=== PATIENT | male | born 1950 | race Caucasian/White ===

== ENCOUNTER 2017-06-06 16:28 | Emergency (ER) | payer MEDICARE ==
[~2017-06-06] VITALS: Ht 182.9 cm; Wt 90.7 kg
== END 2017-06-06 19:11 | disposition home or self-care (01) ==
LOC: ED 16:28
DX: R51 Headache (principal); R11.10 Vomiting, unspecified; Z87.891 Personal history of nicotine dependence; Z90.49 Acquired absence of other specified parts of digestive tract; Z88.5 Allergy status to narcotic agent; Z88.8 Allergy status to other drugs, medicaments and biological substances
CPT/HCPCS: 96361; 96374; 96375; 99282; J1200; J2405; J2765; J7030

== ENCOUNTER 2021-01-21 05:45 | Day surgery (SDC) | payer OTHER ==
--- NOTE | 2021-01-16 10:39 | NUR ---
Patient is having a right total hip replacement on 01/21/21. He currently has a 2 wheel walker but will try and get a 4 wheel walker. He does not have stairs into his house and no stairs in his home. He has a walkin shower and shower chair but does not have a hand held shower head. He has a riser on his toilet. He will have a friend bring him and pick him up the day of his surgery. He lives with his significant other Elvira. He is planning on using a taxi to get to physical therapy appts. His first physical therapy appt has not been set up yet but he will call and make this appt.
[~2021-01-21] VITALS: Ht 182.9 cm; Wt 88.6 kg
[~2021-01-21 05:45] MED LIST: ADVIL200 M1 PO; GABAPENTIN300 MG PO
--- NOTE | 2021-01-21 08:44 | NUR ---
01/21/21 0844 Naida Bacon 0822 PT TO PACU AWAKE AND ALERT DENIES PAIN, PT WAS HAVING CARDIAC ISSUES DURING SURGERY, PROCEDURE WAS NOT COMPLETED. PVC AFTER T WAVE MAG SULFATE WAS GIVEN IN OR. PT IN NORMAL SINUS RHYTHEM IN PACU. CONSULT TO HOSPITALIST. LABS AND LOPEZ ORDERED. AIR CONTROL/ANTI AIR WARFARE OFFICER AND AT BEDSIDE.
--- NOTE | 2021-01-21 09:40 | NUR ---
70 YEAR OLD MALE PATIENT OF DR. HENSLEY/MADDI ADMITTED TO CCU S/P RIGHT HIP INCISION. THE SURGERY WAS PUT ON HOLD IN OR MONITOR SHOWED TORSADES DE POINTES. PATIOENT RECIEVED 1 GM OF MAG IN IN OR. UPON ADMIAT TO CCU TO IS ALERT ORIENTED AND COOPERATIVE. DENIES PAIN/NAUSEA. CRYROCUFF ON, LESLEE HOSE ON SCD'S ON. SL INTACT TO RIGHT HAND. ICE CHIPS GIVEN, REPORT RECIEVED FROM IT HELP DESK TECHNICIAN. ADMISSION STATRED. PLAN TO TRANSFER TO [facility] TODAY.
--- NOTE | 2021-01-21 10:00 | NUR ---
ECHOCARDIOGRAM BEING DONE AT BEDSIDE.
--- NOTE | 2021-01-21 10:30 | NUR ---
ECHO COMPLETE. PATIENT DENIES PAIN. CYOCUFF IN PLACE. FEET SCDS ON LESLEE HOSES IN PLACE. REMAINS ON O2 AT 2 LITERS.
--- NOTE | 2021-01-21 11:29 | NUR ---
AWAITING TRANSFER TO [facility].
--- NOTE | 2021-01-21 11:40 | NUR ---
[facility] HERE TO TAKE PATIENT TO [facility] , REPORT TO THEM.
--- NOTE | 2021-01-21 11:55 | NUR ---
TO [facility].
[2021-01-21] MEDS ORDERED: VALERIAN ROOT100 MG PO (12:50)
[2021-01-21] MEDS ORDERED: GNP GLUCOSAMIN PO (12:50)
[2021-01-21] MEDS ORDERED: COLLAGEN PLUS1 EACH PO (12:51)
[2021-01-21] MEDS ORDERED: B COMPLEX1 EACH PO (12:54)
[2021-01-21] MEDS ORDERED: COENZYME Q1050 M1 PO (12:54)
[2021-01-21] MEDS ORDERED: VITAMIN A2400 MCG PO (12:55)
[2021-01-21] MEDS ORDERED: VITAMIN B-12500 MCG PO (12:55)
[2021-01-21] MEDS ORDERED: NIACIN500 M1 PO (12:56)
[2021-01-21] MEDS ORDERED: VITAMIN D3125 MC1 PO (12:56)
[2021-01-21] MEDS ORDERED: MELATONIN5 M2 PO (12:57)
--- NOTE | 2021-01-21 13:09 | OR ---
[facility] [address] [place], [place] [address] Signed DATE OF OPERATION: 01/21/2021 SURGEON: Sushant Bacon MD PREOPERATIVE DIAGNOSIS: Severe degenerative joint disease of right hip. POSTOPERATIVE DIAGNOSIS: Severe degenerative joint disease of right hip. PROCEDURE PERFORMED: Hip arthrotomy. GAMING SURVEILLANCE OBSERVER: VEE Dorman. Sana was present and critical for all portions of the procedure. ANESTHESIA: Spinal. BLOOD LOSS: 100 mL. IMPLANTS: None. COMPLICATIONS: Cardiac dysrhythmia. BRIEF HISTORY: Frankie is a 70-year-old gentleman with severe osteoarthritis of the right hip. He had undergone nonoperative treatment without substantial relief, who wished to proceed with operative. Risks and benefits were undertaken with him and he understood and wished to proceed. DESCRIPTION OF PROCEDURE: After medical clearance, he was taken to the operating room. After adequate anesthesia, he was placed supine on the operating room table. All downside pressure points were well padded. Both hips were prepped and draped as were both lower extremities. The computer ray was then placed in anterior iliac crest two fingerbreadths posterior to the Electronically Signed By: SUSHANT BACON MD 01/21/21 1309 PATIENT NAME: FRANKIE MELLO OPERATIVE REPORT DATE OF : 50 REPORT #: [id number] PHYSICIAN: SUSHANT BACON MD PCP: KRISTEN ARCHULETA MD REPORT IS CONFIDENTIAL AND NOT TO BE RELEASED WITHOUT AUTHORIZATION [facility] [address] [place], [place] [address] Signed ASIS. This was done percutaneously. Attention was then turned to the right side and the incision was marked out, carried through skin and subcutaneous tissue. The interval between incised longitudinally and the interval between the TFL and the gluteus medius was developed with fingers. The 1st retractor was placed around the inferior femoral neck, the 2nd was placed over the superior femoral neck. The rectus was then released off the anterior capsule and elevated and 3rd retractor was placed superiorly. This was done carefully pointing the blade at the opposite kidney. Once this was accomplished, a T-shaped capsulotomy was performed. The capsule was excised and the retractors removed inside the capsule. We then released down into the calcar region such that I could reach the lesser trochanter quite easily. The femoral neck cut was then marked out and an other cut 1 cm above that. Once this was accomplished, both neck cuts were made using a sagittal saw. At that point, the anesthesiologist asked us to stop secondary to the patient is going to have cardiac dysrhythmias. He had PVCs and two short runs of what appeared to be ventricular tachycardia, perhaps Torsades de Pointes. At that point, both wounds were washed out. The computer ray was removed from the pelvis. The fascia was closed quickly using #1 Stratafix, subcutaneous tissue with #0 Stratafix, and skin with rodolfo. The wounds were dressed with Acticoat and he was taken to the recovery room in stable condition at that point. He was given magnesium during the case to try to ameliorate his dysrhythmia. Sushant Bacon MD BA/MODL /[id number] Copies: ~ Electronically Signed By: SUSHANT BACON MD 01/21/21 1309 PATIENT NAME: FRANKIE MELLO OPERATIVE REPORT DATE OF : 50 REPORT #: [id number] PHYSICIAN: SUSHANT BACON MD PCP: KRISTEN ARCHULETA MD REPORT IS CONFIDENTIAL AND NOT TO BE RELEASED WITHOUT AUTHORIZATION
--- NOTE | 2021-01-21 14:00 | NUR ---
INFORMED PT'S SWEEPER BRUSH MAKER MACHINE THAT HE HAD BEEN TRANSFERRED TO [facility] PER PT REQUEST
--- NOTE | 2021-01-21 19:15 | EKG ---
[facility] [address] [place] [address] Signed Normal sinus rhythm Nonspecific ST abnormality Prolonged QT Abnormal ECG Confirmed by DOREEN LINDA MD ([id number]) on 01/21/2021 7:15:47 PM Electronically Signed By: DOREEN LINDA MD 01/21/21 191 PATIENT NAME: CHRIS MELLO Electrocardiogram DATE OF : 50 PHYSICIAN: DOREEN LINDA MD REPORT #: [id number] REPORT IS CONFIDENTIAL AND NOT TO BE RELEASED WITHOUT AUTHORIZATION
== END 2021-01-21 11:55 | disposition home or self-care (01) ==
LOC: DS 05:45 → CCU 05:45 → DS 06:45
PROVIDERS: ATTEND Specialist
PROC: 0SJ90ZZ Inspection of Right Hip Joint, Open Approach (ICD-10-PCS; principal; 2021-01-21 06:45)
DX: M16.11 Unilateral primary osteoarthritis, right hip (principal); G62.9 Polyneuropathy, unspecified; I47.2 Ventricular tachycardia; I49.8 Other specified cardiac arrhythmias; R00.1 Bradycardia, unspecified; I95.9 Hypotension, unspecified; G89.18 Other acute postprocedural pain; Z87.891 Personal history of nicotine dependence; Z88.5 Allergy status to narcotic agent; Z91.011 Allergy to milk products; Z96.653 Presence of artificial knee joint, bilateral; Z53.8 Procedure and treatment not carried out for other reasons
CPT/HCPCS: 36415; 64447; 76942; 80053; 82550; 82553; 83735; 83874; 84484; 93005; 93010; 93306; C1713; J0690; J1100; J2001; J2250; J2704; J2795; J7121

== ENCOUNTER 2021-06-03 22:07 | Inpatient (IN) | payer MEDICARE ==
[~2021-06-03] VITALS: Ht 182.9 cm; Wt 83.9 kg
[~2021-06-03 22:07] MED LIST changes: +B COMPLEX1 EACH PO; +COENZYME Q1050 M1 PO; +COLLAGEN PLUS1 EACH PO; +GNP GLUCOSAMIN PO; +MELATONIN5 M2 PO; +NIACIN500 M1 PO; +VALERIAN ROOT100 MG PO; +VITAMIN A2400 MCG PO; +VITAMIN B-12500 MCG PO; +VITAMIN D3125 MC1 PO
[2021-06-03] MEDS ORDERED: CLOPIDOGREL75 MG PO (22:26)
[2021-06-03] MEDS ORDERED: ASPIRIN81 MG PO (22:26)
--- NOTE | 2021-06-04 00:39 | NUR ---
REPORT RECEIVED FROM BRANCHERTHEO MALDONADO.
--- NOTE | 2021-06-04 01:47 | NUR ---
pt ARRIVES TO MS FLOOR. ABLE TO TRANSFER SELF FROM STRETCHER TO HOSPITAL BED. pt DROWSY, REQUESTING TO SLEEP. C/O NAUSEA, PRN NIO SL ZOFRAN ADMINISTERED. IV SITE FLUSHED WNL, IV REMDESIVIR INFUSING ORDERED. ORIENTATION TO ROOM PROVIDED. ASSESSMENT COMPLETE. LUNG SOUNDS COARSE BILATERALLY IN BASES. 2L OXYGEN BY NC IN PLACE, SPO2 WNL. CALL LIGHT IN REACH.
--- NOTE | 2021-06-04 04:41 | NUR ---
pt RESTING IN BED ON BACK, EYES CLOSED, BREATHING UNLABORED. 2L OXYGEN BY NC IN PLACE.
--- NOTE | 2021-06-04 06:40 | NUR ---
pt AWAKE RESTING IN BED. URINAL EMPTIED. VSS. BREAKFAST MENU IN REACH. CALL LIGHT IN REACH. NO NEEDS AT THIS TIME.
--- NOTE | 2021-06-04 07:33 | NUR ---
this rn received report from kayden javed. pt appears to be waking up. pt states that he needs to use the restroom, this rn discussed with pt that he has a urinal at the bedside, pt states that he is able to use this.
--- NOTE | 2021-06-04 08:10 | NUR ---
this rn in pts room to bring pt his morning meds. pt reports that he has slight nausea this am but states that he would like to try some food to see if that will make it better. this rn will continue to monitor.
--- NOTE | 2021-06-04 09:45 | NUR ---
THIS RN IN PTS ROOM TO GIVE PT PART OF HIS MORNING MEDS AND DO MORING ASSESSMENT. PT STATES THAT HE HAS A HEADSCHE BUT OTHERWISE IS DOING OKAY. PT HAS A PRODUCTIVE COUGH AND IS SPITTING IT INTO AN EMESIS BAG
--- NOTE | 2021-06-04 10:30 | NUR ---
THIS RN IN PTS ROOM TO GIVE PT MORE ORDERED MEDS. PT ON ROOM AIR AT THIS TIME AND IS TOELRATING WELL. APPETITE IS NOTED TO BE GOOD. PT STATES THAT HE DOES NEED TYELNOLE AND BLINDS CLOSED DUE TO A HEADACHE. THIS RN OBTAINED A VERBAL ORDER FROM FOR PO TYLEONL 650MG Q6
[2021-06-04] MEDS ORDERED: [UNRECOGNIZED DRUG - OTHER] PO (11:56)
[2021-06-04] MEDS ORDERED: GINKGO BILOBA40 M1 PO (11:57)
--- NOTE | 2021-06-04 11:57 | NUR ---
MED REC COMPLETE
--- NOTE | 2021-06-04 12:30 | NUR ---
Pt lives with his SO in a 1 story home with 3 steps. Step son, Lee, is staying with them to assist as they both have covid and SO is discharging home today. If pt requires 02 on dc they would like [place] Pt plans on dc to home when able to dc. Lee will assist as needed.
[2021-06-04] MEDS ORDERED: LIPITOR40 MG PO (13:31)
--- NOTE | 2021-06-04 14:15 | NUR ---
THIS RN IN PTS ROOM TO CHECK ON PT AND DO ASSESSMENT. PT DOING WELL AND IS SIDE PRONING AT THIS TIME.
--- NOTE | 2021-06-04 17:30 | NUR ---
[facility] STATES THAT HE IS DOING GOOD AND JUST NEEDS A NEW EMSIS BAG FOR HIS SPUTUM THAT HE IS COUGHING UP. PT DENIES DESIRE FOR COUGH MEDS BECAUSE HE WANTS TO CONTIUE TO GET THE MUCOUS UP.
--- NOTE | 2021-06-04 18:41 | EKG ---
[facility] [address] [place] [address] Signed Sinus rhythm with occasional premature ventricular complexes Otherwise normal ECG When compared with ECG of 21-JAN-2021 08:25, premature ventricular complexes are now present QT has shortened Confirmed by HANNA LAYNE DO ([id number]) on 06/04/2021 6:41:18 PM Electronically Signed By: HANNA LAYNE DO 06/04/21 1841 PATIENT NAME: CHRIS MELLO Electrocardiogram DATE OF : 50 PHYSICIAN: HANNA LAYNE DO REPORT #: [id number] REPORT IS CONFIDENTIAL AND NOT TO BE RELEASED WITHOUT AUTHORIZATION
--- NOTE | 2021-06-04 19:30 | NUR ---
REPORT RECEIVED FROM THEO DARLING. pt RESTING IN BED. ISOLATION PRECAUTIONS IN PLACE. ASSUMED CARE OF pt.
--- NOTE | 2021-06-04 20:08 | NUR ---
PHONE CALL TO DR. LAYNE, TELEPHONE ORDER FOR PATIENT'S HOME DOSE OF GABAPENTIN, REPEATED BACK TO VERIFY.
--- NOTE | 2021-06-04 20:46 | NUR ---
pt RESTING IN BED AWAKE. ASSESSMENT COMPLETE, CRACKLES AUSCULTATED BILATERALLY LUNG LOBES, pt USING IS AT BEDSIDE, SPO2 94% ON RA. IV SITE FLUSHED WNL, IV MEDICATION INFUSING ORDERED. pt COMPLAINS OF 4/10 HEADACHE, PRN TYLENOL ADMINISTERED WITH SCHEDULED MEDICATIONS. URINAL EMPTIED. pt COUGHING UP THIN, CLEAR SPUTUM. ICE WATER PROVIDED.
--- NOTE | 2021-06-04 23:00 | NUR ---
CHECKED ON pt. RESTING IN BED ON SIDE, BREATHING UNLABORED.
--- NOTE | 2021-06-05 01:00 | NUR ---
CHECKED ON pt. RESTING IN BED WITH EYES CLOSED, BREATHING EQUAL AND UNLABORED.
--- NOTE | 2021-06-05 01:30 | NUR ---
WENT INTO THE ROOM. PATIENT IS RESTING LAYING ON HIS RIGHT SIDE BREATHING UNLABORED. EMPTIED URINAL AND FLUSHED THE TOLIET.
--- NOTE | 2021-06-05 02:40 | NUR ---
CALL LIGHT ANSWERED. WARM BLANKETS PROVIDED BY [facility]ISA CHASE AT THIS TIME. NO ADDITIONAL REQUESTS. CALL LIGHT IN REACH.
--- NOTE | 2021-06-05 05:04 | NUR ---
CALL LIGHT ANSWERED. pt COMPLAINS OF ROOM BEING COLD. TEMPERATURE ADJUSTED, WARM BLANKET PROVIDED. VSS. SPO2 WNL ON RA. ASSESSMENT COMPLETE. CRACKLES AUSCULTATED BILATERALLY LOWER LUNG LOBES. AFEBRILE. URINAL EMPTIED. CALL LIGHT IN REACH.
--- NOTE | 2021-06-05 07:33 | NUR ---
REPORT RECIEVED FROM THEO GOETZ. PT SIDE LAYING AND APPEARS TO BE SLEEPING.
--- NOTE | 2021-06-05 08:01 | NUR ---
ADMINISTERED MORNING MEDS INCLUDING REQUESTED STOOL SOFTENER. PT MOANING AND GROANING. REPORTS FEELING MORE LABORED WITH BREATHING AND JUST GENERAL NOT FEELING WELL THIS MORNING. LUNGS SOUNDS MOSTLY CLEAR WITH GOOD AIR MOVEMENT. SATS 94% ON RA. PT SITTING UPRIGHT IN BED AFTER DECLINING TO GET UP FOR BREAKFAST OR HAVE CURTAINS RAISED.
[2021-06-05] MEDS ORDERED: NEURONTIN300 MG PO (10:01)
--- NOTE | 2021-06-05 11:06 | NUR ---
PT CALLED FOR ICE WATER. MARISA MISTRY ON WAY IN. PT DENIES CONCERNS.
--- NOTE | 2021-06-05 11:20 | NUR ---
No change in plan for dc. Pt not requiring 02. Will dc to home.
[2021-06-05] MEDS ORDERED: DEXAMETHASONE6 MG PO (11:39)
[2021-06-05] MEDS ORDERED: ZOFRAN4 MG PO (11:40)
--- NOTE | 2021-06-05 13:34 | NUR ---
ADMINISTERED SCHEDULED MEDS. TALKED WITH PT ABOUT PENDING DISCHARGE.
--- NOTE | 2021-06-05 13:52 | NUR ---
Kennedy asked me to check on PT. When I first arrived PT was receiving PT care. On my second attempt PT was available. I called his cell phone and stood outside the door while we visited. He is being dischared. I asked him how I could be praying and he asked me to pray for his partner as well. We prayed together for healing and God's comfort during this time and he thanked me for stopping by. PT had also heard from the practice billing associate from his religion.
--- NOTE | 2021-06-05 14:32 | NUR ---
PT SITTING UP IN BED TALKING ON PHONE
== END 2021-06-05 16:05 | disposition home or self-care (01) | DRG 177 ==
LOC: ED 22:07 → MS 06-04 00:16
PROVIDERS: ADMIT Student in an Organized Health Care Education/Training Program; ATTEND Student in an Organized Health Care Education/Training Program
PROC: 8E0ZXY6 Isolation (ICD-10-PCS; principal; 2021-06-04)
PROC: 3E0333Z Introduction of Anti-inflammatory into Peripheral Vein, Percutaneous Approach (ICD-10-PCS; 2021-06-04)
PROC: XW033E5 Introduction of Remdesivir Anti-infective into Peripheral Vein, Percutaneous Approach, New Technology Group 5 (ICD-10-PCS; 2021-06-04)
DX: U07.1 COVID-19 (principal); J96.01 Acute respiratory failure with hypoxia; J12.82 Pneumonia due to coronavirus disease 2019; I25.10 Atherosclerotic heart disease of native coronary artery without angina pectoris; Z95.5 Presence of coronary angioplasty implant and graft; Z96.653 Presence of artificial knee joint, bilateral; Z91.011 Allergy to milk products; Z88.8 Allergy status to other drugs, medicaments and biological substances; Z88.5 Allergy status to narcotic agent; Z79.02 Long term (current) use of antithrombotics/antiplatelets; Z90.49 Acquired absence of other specified parts of digestive tract; Z98.890 Other specified postprocedural states; Z79.899 Other long term (current) drug therapy; Z79.82 Long term (current) use of aspirin
CPT/HCPCS: 71045; 80053; 84484; 85025; 93005; 93010; 94760; 97110; 97116; 97161; 99285-25; A9270; C9803; J1100; J1650; J7050; J7121; U0003